=== PATIENT | male | born 1975 | race Caucasian/White ===

== ENCOUNTER 2016-10-12 16:07 | Emergency (ER) | payer MEDICAID ==
[~2016-10-12] VITALS: Ht 167.6 cm; Wt 91.2 kg
[2016-10-12 19:33] VITALS: BP 143/71
== END 2016-10-12 19:33 | disposition home or self-care (01) ==
LOC: ED 16:07
DX: S22.078A Other fracture of T9-T10 vertebra, initial encounter for closed fracture (principal); S22.088A Other fracture of T11-T12 vertebra, initial encounter for closed fracture; X58.XXXA Exposure to other specified factors, initial encounter; Y93.89 Activity, other specified; Y92.89 Other specified places as the place of occurrence of the external cause; Y99.8 Other external cause status
CPT/HCPCS: J1885

== ENCOUNTER 2016-12-14 22:46 | Emergency (ER) | payer SELFPAY ==
[2016-12-15 01:23] VITALS: BP 124/87
== END 2016-12-15 01:23 | disposition home or self-care (01) ==
LOC: ED 22:46
DX: S29.012A Strain of muscle and tendon of back wall of thorax, initial encounter (principal); R03.0 Elevated blood-pressure reading, without diagnosis of hypertension; V89.2XXA Person injured in unspecified motor-vehicle accident, traffic, initial encounter; Y93.89 Activity, other specified; Y92.89 Other specified places as the place of occurrence of the external cause; Y99.8 Other external cause status
CPT/HCPCS: J1885

== ENCOUNTER 2018-02-16 19:20 | Emergency (ER) | payer SELFPAY ==
[~2018-02-16] VITALS: Ht 167.6 cm; Wt 94.3 kg
[2018-02-16 19:39] VITALS: Ht 167.6 cm; Wt 94.3 kg
[2018-02-16 20:23] LABS: BASOPHIL % 0.1 % (0-2); PLATELET COUNT 167 x10^3mcL (130-400); RED CELL DISTRIBUTION WIDTH 13.3 % (11.5-14.5)
[2018-02-16 20:34] LABS: CALCIUM 8.3 mg/dL (8.5-10.1); CARBON DIOXIDE 23.9 mmol/L (21-32); CHLORIDE SERUM 104 mmol/L (98-107); GFR1 > 60 mL/min; GLUCOSE SERUM 120 mg/dL (74-106); SODIUM SERUM 138 mmol/L (136-145)
[2018-02-16 20:39] LABS: ALBUMIN 3.6 g/dL (3.4-5.0); ALKALINE PHOSPHATASE 67 U/L (46-116); ALT/SGPT 47 U/L (16-63); AST/SGOT 18 U/L (15-37); TOTAL PROTEIN, SERUM 7.2 g/dL (6.4-8.2)
[2018-02-16 23:08] VITALS: BP 125/69
== END 2018-02-16 23:08 | disposition home or self-care (01) ==
LOC: ED 19:20
PROVIDERS: Emergency Medicine
DX: T62.91XA Toxic effect of unspecified noxious substance eaten as food, accidental (unintentional), initial encounter (principal); K52.89 Other specified noninfective gastroenteritis and colitis; Y92.89 Other specified places as the place of occurrence of the external cause
CPT/HCPCS: 36415; J1885; J2765; J7030

== ENCOUNTER 2018-08-03 21:16 | Emergency (ER) | payer BC ==
[~2018-08-03] VITALS: Ht 167.6 cm; Wt 96.6 kg
[2018-08-03 22:09] VITALS: Ht 167.6 cm; Wt 96.6 kg
[2018-08-03 23:13] VITALS: BP 150/96
== END 2018-08-03 23:15 | disposition home or self-care (01) ==
LOC: ED 21:16
DX: H66.92 Otitis media, unspecified, left ear (principal)
CPT/HCPCS: J1885